=== PATIENT | female | born 1975 | race Native Hawaiian/Other Pacific Islander ===

== ENCOUNTER 2019-02-26 06:45 | Outpatient (CLI) | payer OTHER ==
[2019-02-26 07:00] LABS: PLATELET COUNT 348 K/uL (152-353)
== END 2019-02-26 21:02 | disposition home or self-care (01) ==
LOC: LABW 06:45
PROVIDERS: Nurse Practitioner
DX: F41.1 Generalized anxiety disorder (principal); R51 Headache
CPT/HCPCS: 80053; 80061; 82306; 84443; 85027